=== PATIENT | male | born 1945 | race African-American/Black ===

== ENCOUNTER 2016-02-28 07:24 | Outpatient (CLI) | payer MEDICARE ==
[2016-02-28 09:35] LABS: ALT (SGPT) 26 U/L (0-55); AST (SGOT) 20 U/L (5-34); Alkaline Phosphatase 79 U/L (40-150); Anion Gap 12 mmol/L (10-20); BUN (Urea Nitrogen) 15 mg/dL (8.4-25.7); Bilirubin, Direct 0.4 mg/dL (0.1-0.3); Bilirubin, Total 0.9 mg/dL (0.2-1.2); Calc. Creatinine Clearance 0 mL/min (70-130); Carbon Dioxide 25 mmol/L (23-31); Chloride 106 mmol/L (98-107); Estimated GFR-MDRD 72; LDL Cholesterol, Calculated 63 mg/dL; Magnesium 1.8 mg/dL (1.6-2.6); Protein, Total 6.7 g/dL (5.8-8.1)
[2016-02-28 09:36] LABS: Hemoglobin A1c 5.7 % (4.0-6.0)
== END 2016-02-28 07:25 | disposition home or self-care (01) ==
LOC: NAV LABSP 07:24
PROVIDERS: ATTEND Family Medicine
DX: I50.42 Chronic combined systolic (congestive) and diastolic (congestive) heart failure (principal); I48.91 Unspecified atrial fibrillation; I25.10 Atherosclerotic heart disease of native coronary artery without angina pectoris; Z79.899 Other long term (current) drug therapy
CPT/HCPCS: 36415; 80048; 80061; 80076; 83036; 83735; 84436; 84443

== ENCOUNTER 2016-03-17 15:30 | Outpatient (CLI) | payer MEDICARE | END 2016-03-17 15:31 | disposition home or self-care (01) | LOC: NAV LABSP 15:30 | PROVIDERS: ATTEND Family Medicine | DX: R50.9 Fever, unspecified (principal); R05 Cough ==

== ENCOUNTER 2016-04-10 15:47 | Emergency (ER) | payer MEDICARE, OTHER ==
--- NOTE | 2016-04-10 16:48 | CT ---
CT HEAD WITHOUT IV CONTRAST 04/10/16 HISTORY: Patient fell at [place], now complains of headache with pain to back of head. COMPARISON: 02/01/16 Again noted are mild chronic small vessel ischemic changes and cerebral volume loss which have not p rogressed from the prior exam. There is no evidence of an acute cortical infarction, hemorrhage, mas s effect or midline shift. Ventricles are normal in size, shape and position for the degree of sulca l atrophy. There is mucosal thickening in each maxillary antrum and ethmoidal air cells as well as the right sp henoid sinus. There is thickening of the sexton of the right maxillary antrum, which may be attributa ble to chronic sinusitis. There is no evidence of a calvarial fracture. IMPRESSION: 1. No acute intracranial abnormality demonstrated. 2. Chronic small vessel ischemic changes and cerebral volume loss which has not progressed from the prior exam. 3. Minimal sinus disease. POS: [facility]
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
[2016-04-10 16:58] LABS: #Basophils 0.1 thou/uL (0.0-0.2); #Eosinphils 0.4 thou/uL (0.0-0.7); #Lymphocytes 1.9 thou/uL (1.20-3.40); #Monocytes 0.6 thou/uL (0.11-0.59); #Neutrophils 2.1 thou/uL (1.40-6.50); %Basophils 1.9 % (0.0-1.0); %Eosinophils 7.4 % (0.0-10.0); %Lymphocytes 37.4 % (21.0-51.0); %Monocytes 11.9 % (0.0-10.0); Mean Platelet Volume 6.2 fL (7.4-10.4); Red Blood Cell (RBC) Count 3.93 mill/uL (4.70-6.10); White Blood Cell (WBC) Count 5.1 thou/uL (4.8-10.8)
[2016-04-10 17:07] LABS: PTT 21.9 SEC (22.9-36.1); Prothrombin Time 13.8 SEC (12.0-14.7)
[2016-04-10 17:10] LABS: Anion Gap 15 mmol/L (10-20); BUN (Urea Nitrogen) 9 mg/dL (8.4-25.7); Calc. Creatinine Clearance 0 mL/min (70-130); Calcium 8.3 mg/dL (7.8-10.44); Carbon Dioxide 21 mmol/L (23-31); Chloride 103 mmol/L (98-107); Estimated GFR-MDRD Greater than 90
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
== END 2016-04-11 00:45 | disposition home or self-care (01) ==
LOC: NAV ERS 15:47
DX: S09.90XA Unspecified injury of head, initial encounter (principal); I71.4 Abdominal aortic aneurysm, without rupture; S20.229A Contusion of unspecified back wall of thorax, initial encounter; M54.2 Cervicalgia; Z79.01 Long term (current) use of anticoagulants; W10.9XXA Fall (on) (from) unspecified stairs and steps, initial encounter
CPT/HCPCS: 70450; 71260; 72125; 74177; 80048; 80307; 85025; 85610; 85730

== ENCOUNTER 2016-07-08 19:08 | Emergency (ER) | payer MEDICARE, MEDICAID ==
[2016-07-08] MEDS ORDERED: Amoxicillin/Potassium Clav 875 MG TAB ONE (19:44)
[2016-07-08] MEDS ORDERED: Rabies Vaccine Human 2.5 UNITS VIAL ONE (19:45)
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
== END 2016-07-08 20:38 | disposition home or self-care (01) ==
LOC: NAV ERS 19:08
DX: S71.152A Open bite, left thigh, initial encounter (principal); S80.811A Abrasion, right lower leg, initial encounter; I25.10 Atherosclerotic heart disease of native coronary artery without angina pectoris; E78.5 Hyperlipidemia, unspecified; I10 Essential (primary) hypertension; F17.220 Nicotine dependence, chewing tobacco, uncomplicated; W54.0XXA Bitten by dog, initial encounter
CPT/HCPCS: 90375; 90471; 90675; 96372

== ENCOUNTER 2016-12-25 19:04 | Emergency (ER) | payer MEDICARE ==
[2016-12-25] MEDS ORDERED: Nitroglycerin 0.4 MG TAB (25 Tab Bottle) ONE (19:21)
--- NOTE | 2016-12-25 19:40 | RAD ---
EXAM: ONE VIEW CHEST 12/25/16 HISTORY: Chest pain. COMPARISON: 07/30/16 FINDINGS: Stable right sided defibrillator. Sternotomy wires are redemonstrated. Normal cardiac silhouette. Th e pulmonary vessels and hilum are normal. Costophrenic angles are clear. No mass. No consolidation. No osseous abnormalities or pneumothorax. IMPRESSION: No acute cardiopulmonary process. No significant change. POS: [facility]
[2016-12-25 19:43] LABS: #Basophils 0.1 thou/uL (0.0-0.2); #Eosinphils 0.2 thou/uL (0.0-0.7); #Lymphocytes 2.2 thou/uL (1.20-3.40); #Monocytes 0.5 thou/uL (0.11-0.59); #Neutrophils 2.8 thou/uL (1.40-6.50); %Basophils 2.1 % (0.0-1.0); %Eosinophils 4.1 % (0.0-10.0); %Lymphocytes 37.9 % (21.0-51.0); %Monocytes 8.8 % (0.0-10.0); %Neutrophils 47.2 % (42.0-75.0); Hemoglobin 15.4 g/dL (14.0-18.0); Mean Corpuscular HGB CONC 31.5 g/dL (32.0-36.0); Mean Corpuscular Hemoglobin 31.2 pg (27.0-31.0); Mean Corpuscular Volume 99.2 fl (80.0-94.0); Mean Platelet Volume 7.6 fL (7.4-10.4); Platelet Count 195 thou/uL (130-400); RBC Distribution Width 13.5 % (11.5-14.5); Red Blood Cell (RBC) Count 4.95 mill/uL (4.70-6.10); White Blood Cell (WBC) Count 5.9 thou/uL (4.8-10.8)
[2016-12-25 19:56] LABS: ALT (SGPT) 20 U/L (8-55); AST (SGOT) 30 U/L (5-34); Albumin 3.7 g/dL (3.4-4.8); Alcohol 179 mg/dL (Less than 10); Alkaline Phosphatase 79 U/L (40-150); Anion Gap 18 mmol/L (10-20); BUN (Urea Nitrogen) 8 mg/dL (8.4-25.7); Bilirubin, Total 0.7 mg/dL (0.2-1.2); CK (CPK) 81 U/L (30-200); Calc. Creatinine Clearance 0 mL/min (70-130); Calcium 8.7 mg/dL (7.8-10.44); Carbon Dioxide 23 mmol/L (23-31); Chloride 101 mmol/L (98-107); Estimated GFR-MDRD Greater than 90; Globulin 3.8 g/dL (2.4-3.5); Glucose 80 mg/dL (80-115); Potassium 3.4 mmol/L (3.5-5.1); Protein, Total 7.5 g/dL (5.8-8.1); Sodium 139 mmol/L (136-145)
[2016-12-25 19:58] LABS: CKMB 1.8 ng/mL (0-6.6); Troponin I 0.031 ng/mL (< 0.028)
[2016-12-25] MEDS ORDERED: Potassium Chloride 20 MEQ TAB ONE (20:15)
== END 2016-12-25 20:28 | disposition short-term general hospital (02) ==
LOC: NAV ERS 19:04
DX: E87.6 Hypokalemia (principal); R07.9 Chest pain, unspecified; F10.129 Alcohol abuse with intoxication, unspecified; E78.5 Hyperlipidemia, unspecified; I25.10 Atherosclerotic heart disease of native coronary artery without angina pectoris; I10 Essential (primary) hypertension; F17.220 Nicotine dependence, chewing tobacco, uncomplicated
CPT/HCPCS: 71010; 80053; 80307; 82553; 83880; 84484; 85025; 93005

== ENCOUNTER 2017-03-10 16:06 | Emergency (ER) | payer MEDICARE ==
[2017-03-10] MEDS ORDERED: Nitroglycerin 0.4 MG TAB (25 Tab Bottle) ONE (16:29)
[2017-03-10 16:59] LABS: ALT (SGPT) 39 U/L (8-55); AST (SGOT) 29 U/L (5-34); Albumin 3.4 g/dL (3.4-4.8); Alcohol 29 mg/dL (Less than 10); Alkaline Phosphatase 99 U/L (40-150); Anion Gap 15 mmol/L (10-20); BUN (Urea Nitrogen) 12 mg/dL (8.4-25.7); Bilirubin, Total 1.7 mg/dL (0.2-1.2); CK (CPK) 102 U/L (30-200); Calc. Creatinine Clearance 0 mL/min (70-130); Carbon Dioxide 23 mmol/L (23-31); Chloride 104 mmol/L (98-107); Estimated GFR-MDRD Greater than 90; Globulin 3.2 g/dL (2.4-3.5); Glucose 84 mg/dL (80-115); Potassium 4.2 mmol/L (3.5-5.1); Protein, Total 6.6 g/dL (5.8-8.1); Sodium 138 mmol/L (136-145)
[2017-03-10 17:01] LABS: CKMB 2.5 ng/mL (0-6.6); Troponin I 0.159 ng/mL (< 0.028)
[2017-03-10 17:05] LABS: Bilirubin Small (Negative); Blood, Urine Negative (Negative); Clarity Clear (Clear); Glucose, Urine (Dipstick) Negative (Negative); Leukocyte Negative (Negative); Nitrite Negative (Negative); Protein, Urine (Dipstick) 100 mg/dL (Neg-Trace)
[2017-03-10 17:06] LABS: #Basophils 0.2 thou/uL (0.0-0.2); #Eosinphils 0.2 thou/uL (0.0-0.7); #Lymphocytes 1.7 thou/uL (1.20-3.40); #Monocytes 0.8 thou/uL (0.11-0.59); #Neutrophils 3.5 thou/uL (1.40-6.50); %Basophils 2.9 % (0.0-1.0); %Lymphocytes 26.8 % (21.0-51.0); %Monocytes 12.7 % (0.0-10.0); %Neutrophils 54.6 % (42.0-75.0); Hemoglobin 13.6 g/dL (14.0-18.0); Mean Corpuscular HGB CONC 31.9 g/dL (32.0-36.0); Mean Corpuscular Volume 93.8 fl (80.0-94.0); Mean Platelet Volume 8.2 fL (7.4-10.4); Platelet Count 203 thou/uL (130-400); RBC Distribution Width 13.3 % (11.5-14.5); Red Blood Cell (RBC) Count 4.55 mill/uL (4.70-6.10); White Blood Cell (WBC) Count 6.4 thou/uL (4.8-10.8)
[2017-03-10 17:21] LABS: Amphetamine Not Detected (NotDetected); Barbiturates Screen Not Detected (NotDetected); Benzodiazepine Screen Not Detected (NotDetected); Cocaine Metabolite Screen Not Detected (NotDetected); Medtox Control Line Valid? VALID (VALID); Methadone Not Detected (NotDetected); Methamphetamine Not Detected (NotDetected); Opiate Screen Not Detected (NotDetected); Oxycodone Screen Not Detected (NotDetected); Phencyclidine (PCP) Not Detected (NotDetected); THC/Cannabinoid Screen Not Detected (NotDetected); Tricyclic Screen Not Detected (NotDetected)
[2017-03-10] MEDS ORDERED: Furosemide 40 MG/4 ML VIAL ONE (17:28)
[2017-03-10 17:32] LABS: Bacteria/HPF None Seen HPF (None Seen); RBC/HPF 0-3 HPF (0-3); Squamous Epithelial 0-3 HPF (0-3); WBC/HPF None Seen HPF (0-3)
--- NOTE | 2017-03-10 17:33 | RAD ---
PORTABLE CHEST 03/10/17 PROVIDED CLINICAL HISTORY: Chest pain. FINDINGS: Comparison 12/25/16. The cardiac silhouette appears enlarged. Median sternotomy changes and right subclavian cardiac pacin g device are redemonstrated. There is prominence of the pulmonary vasculature and pulmonary interstit ium. No definite focal consolidation, pleural fluid, or pneumothorax apparent. IMPRESSION: Cardiomegaly and findings suggesting congestive failure. Followup is recommended. POS: [facility]
== END 2017-03-10 19:21 | disposition short-term general hospital (02) ==
LOC: NAV ERS 16:06
DX: I11.0 Hypertensive heart disease with heart failure (principal); I50.9 Heart failure, unspecified; I25.10 Atherosclerotic heart disease of native coronary artery without angina pectoris; E78.5 Hyperlipidemia, unspecified; F17.220 Nicotine dependence, chewing tobacco, uncomplicated
CPT/HCPCS: 71045; 80053; 80306; 80307; 81003; 81015; 82550; 82553; 83880; 84484; 85025; 93005; 96374; J1940

== ENCOUNTER 2017-03-16 17:48 | Emergency (ER) | payer MEDICARE ==
[2017-03-16] MEDS ORDERED: Nitroglycerin 0.4 MG TAB (25 Tab Bottle) ONE (18:12)
[2017-03-16 18:31] LABS: INR-International Normal Ratio 1.1; PTT 29.1 SEC (22.9-36.1); Prothrombin Time 14.5 SEC (12.0-14.7)
[2017-03-16 18:35] LABS: Mean Corpuscular HGB CONC 32.1 g/dL (32.0-36.0); Mean Corpuscular Volume 93.3 fl (80.0-94.0); Mean Platelet Volume 10.8 fL (7.4-10.4); Platelet Count 252 thou/uL (130-400); RBC Distribution Width 12.8 % (11.5-14.5); Red Blood Cell (RBC) Count 4.66 mill/uL (4.70-6.10)
[2017-03-16 18:36] LABS: Digoxin 0.16 ng/mL (0.8-2.0)
[2017-03-16 18:38] LABS: ALT (SGPT) 31 U/L (8-55); AST (SGOT) 30 U/L (5-34); Albumin 3.6 g/dL (3.4-4.8); Alcohol 34 mg/dL (Less than 10); Alkaline Phosphatase 89 U/L (40-150); Anion Gap 16 mmol/L (10-20); BUN (Urea Nitrogen) 12 mg/dL (8.4-25.7); Bilirubin, Total 1.1 mg/dL (0.2-1.2); Calc. Creatinine Clearance 0 mL/min (70-130); Calcium 9.1 mg/dL (7.8-10.44); Carbon Dioxide 22 mmol/L (23-31); Chloride 104 mmol/L (98-107); Estimated GFR-MDRD Greater than 90; Globulin 3.7 g/dL (2.4-3.5); Glucose 102 mg/dL (80-115); Protein, Total 7.3 g/dL (5.8-8.1); Sodium 138 mmol/L (136-145)
[2017-03-16 18:46] LABS: CKMB 3.4 ng/mL (0-6.6); Troponin I 0.073 ng/mL (< 0.028)
[2017-03-16 19:00] LABS: Eosinophils 4 % (0-10); Lymphocytes 39 % (21-51); MDiff Complete? YES; Monocytes 10 % (0-10); Neutrophil 47 % (42-75); PLT Morphology Comment Appears Adequate; RBC Morphology Normal
[2017-03-16] MEDS ORDERED: Ketorolac Tromethamine 30 MG/ML VIAL ONE (19:05)
[2017-03-16] MEDS ORDERED: Furosemide 40 MG/4 ML VIAL ONE (19:05)
--- NOTE | 2017-03-16 20:15 | RAD ---
CHEST TWO VIEWS: 03/16/17 HISTORY: Shortness of breath and chest pain. Heart size is slightly enlarged. Pulmonary vessels are mildly engorged without focal infiltrative pro cess. An internal defibrillator device is present. IMPRESSION: Cardiomegaly with mild vascular engorgement. No overt edema. POS: [facility]
== END 2017-03-16 19:25 | disposition home or self-care (01) ==
LOC: NAV ERS 17:48
DX: I11.0 Hypertensive heart disease with heart failure (principal); I50.9 Heart failure, unspecified; E78.5 Hyperlipidemia, unspecified; Z79.899 Other long term (current) drug therapy; Z79.82 Long term (current) use of aspirin
CPT/HCPCS: 71046; 80053; 80162; 80307; 82553; 83880; 84484; 85025; 85610; 85730; 93005; 96374; 96375; J1885; J1940

== ENCOUNTER 2017-03-20 15:40 | Emergency (ER) | payer MEDICARE ==
[2017-03-20] MEDS ORDERED: Ketorolac Tromethamine 30 MG/ML VIAL ONE (16:04)
[2017-03-20] MEDS ORDERED: Ibuprofen 200 MG TAB ONE (16:08)
== END 2017-03-20 16:43 | disposition home or self-care (01) ==
LOC: NAV ERS 15:40
DX: R07.9 Chest pain, unspecified (principal); I25.10 Atherosclerotic heart disease of native coronary artery without angina pectoris; E78.5 Hyperlipidemia, unspecified; I11.0 Hypertensive heart disease with heart failure; I50.9 Heart failure, unspecified
CPT/HCPCS: 93005; J1885

== ENCOUNTER 2017-04-19 18:03 | Emergency (ER) | payer MEDICARE ==
[2017-04-19] MEDS ORDERED: Ibuprofen 800 MG TAB ONE (18:35)
== END 2017-04-19 18:46 | disposition home or self-care (01) ==
LOC: NAV ERS 18:03
DX: R07.89 Other chest pain (principal); F10.129 Alcohol abuse with intoxication, unspecified; I25.10 Atherosclerotic heart disease of native coronary artery without angina pectoris; I11.0 Hypertensive heart disease with heart failure; I50.9 Heart failure, unspecified; E78.5 Hyperlipidemia, unspecified
CPT/HCPCS: 93005

== ENCOUNTER 2017-06-03 20:55 | Emergency (ER) | payer MEDICARE ==
--- NOTE | 2017-06-03 21:34 | RAD ---
AP VIEW OF THE CHEST: 06/03/17 INDICATION: Difficulty breathing. COMPARISON: Prior exam dated 04/27/17. FINDINGS: There is persistent cardiomegaly but worsening pulmonary vascular congestion. Tiny bilateral pleural effusion. AICD is unchanged. IMPRESSION: Findings consistent with decompensated CHF. POS: [facility]
[2017-06-03 21:35] LABS: Hemoglobin 14.4 g/dL (14.0-18.0); Mean Corpuscular HGB CONC 31.3 g/dL (32.0-36.0); Mean Corpuscular Hemoglobin 29.5 pg (27.0-31.0); Mean Corpuscular Volume 94.2 fl (80.0-94.0); Mean Platelet Volume 8.3 fL (7.4-10.4); Platelet Count 167 thou/uL (130-400); RBC Distribution Width 15.5 % (11.5-14.5); Red Blood Cell (RBC) Count 4.89 mill/uL (4.70-6.10); White Blood Cell (WBC) Count 5.2 thou/uL (4.8-10.8)
[2017-06-03 21:45] LABS: CKMB 4.3 ng/mL (0-6.6)
[2017-06-03] MEDS ORDERED: Nitroglycerin 2% Ointment 1 INCH/1 GM Packet ONE (21:58)
[2017-06-03] MEDS ORDERED: Furosemide 40 MG/4 ML VIAL ONE (22:00)
[2017-06-03 22:02] LABS: ALT (SGPT) 28 U/L (8-55); AST (SGOT) 25 U/L (5-34); Albumin 3.8 g/dL (3.4-4.8); Alcohol Less than 10 mg/dL (Less than 10); Alkaline Phosphatase 109 U/L (40-150); Anion Gap 19 mmol/L (10-20); BUN (Urea Nitrogen) 20 mg/dL (8.4-25.7); Bilirubin, Total 1.9 mg/dL (0.2-1.2); CK (CPK) 100 U/L (30-200); Calc. Creatinine Clearance 0 mL/min (70-130); Calcium 9.4 mg/dL (7.8-10.44); Carbon Dioxide 19 mmol/L (23-31); Chloride 107 mmol/L (98-107); Estimated GFR-MDRD 88; Globulin 3.7 g/dL (2.4-3.5); Glucose 83 mg/dL (83-110); Lipase 21 U/L (8-78); Potassium 4.5 mmol/L (3.5-5.1); Protein, Total 7.5 g/dL (5.8-8.1); Sodium 140 mmol/L (136-145)
[2017-06-03 22:17] LABS: Eosinophils 4 % (0-10); Lymphocytes 43 % (21-51); MDiff Complete? YES; Monocytes 6 % (0-10); Neutrophil 47 % (42-75); PLT Morphology Comment Appears Adequate; RBC Morphology Normal
== END 2017-06-03 22:53 | disposition short-term general hospital (02) ==
LOC: NAV ERS 20:55
DX: I21.4 Non-ST elevation (NSTEMI) myocardial infarction (principal); I11.0 Hypertensive heart disease with heart failure; I50.9 Heart failure, unspecified; I25.10 Atherosclerotic heart disease of native coronary artery without angina pectoris; E78.5 Hyperlipidemia, unspecified; F17.210 Nicotine dependence, cigarettes, uncomplicated; Z79.899 Other long term (current) drug therapy
CPT/HCPCS: 71045; 80053; 80307; 82550; 82553; 83690; 83880; 84484; 85025; 93005; 96374; J1940

== ENCOUNTER 2017-08-04 14:19 | Emergency (ER) | payer MEDICARE ==
[2017-08-04 14:56] LABS: #Basophils 0.1 thou/uL (0.0-0.2); #Eosinphils 0.1 thou/uL (0.0-0.7); #Lymphocytes 1.5 thou/uL (1.20-3.40); #Monocytes 0.6 thou/uL (0.11-0.59); #Neutrophils 2.7 thou/uL (1.40-6.50); %Basophils 2.2 % (0.0-1.0); %Eosinophils 1.4 % (0.0-10.0); %Lymphocytes 29.9 % (21.0-51.0); %Monocytes 11.9 % (0.0-10.0); %Neutrophils 54.6 % (42.0-75.0); Hemoglobin 14.6 g/dL (14.0-18.0); Mean Corpuscular HGB CONC 30.8 g/dL (32.0-36.0); Mean Corpuscular Hemoglobin 29.1 pg (27.0-31.0); Mean Corpuscular Volume 94.5 fL (78.0-98.0); Mean Platelet Volume 8.4 fL (7.4-10.4); Platelet Count 175 thou/uL (130-400); RBC Distribution Width 15.8 % (11.5-14.5); White Blood Cell (WBC) Count 4.9 thou/uL (4.8-10.8)
[2017-08-04 15:15] LABS: ALT (SGPT) 23 U/L (8-55); AST (SGOT) 25 U/L (5-34); Albumin 3.6 g/dL (3.4-4.8); Alkaline Phosphatase 114 U/L (40-150); Anion Gap 16 mmol/L (10-20); BUN (Urea Nitrogen) 19 mg/dL (8.4-25.7); Bilirubin, Total 3.4 mg/dL (0.2-1.2); Calc. Creatinine Clearance 0 mL/min (70-130); Carbon Dioxide 17 mmol/L (23-31); Chloride 106 mmol/L (98-107); Estimated GFR-MDRD Greater than 90; Globulin 3.3 g/dL (2.4-3.5); Glucose 108 mg/dL (83-110); Potassium 4.3 mmol/L (3.5-5.1); Protein, Total 6.9 g/dL (5.8-8.1); Sodium 135 mmol/L (136-145)
[2017-08-04 15:18] LABS: Troponin I 0.32 ng/mL (< 0.028)
[2017-08-04] MEDS ORDERED: Nitroglycerin 2% Ointment 1 INCH/1 GM Packet ONE (15:32)
[2017-08-04] MEDS ORDERED: Nitroglycerin 0.4 MG TAB (25 Tab Bottle) ONE (15:32)
[2017-08-04] MEDS ORDERED: Furosemide 40 MG/4 ML VIAL ONE (15:32)
--- NOTE | 2017-08-04 15:33 | RAD ---
PORTABLE CHEST ONE VIEW: 08/04/17 at 3:18 p.m. HISTORY: Chest pain. FINDINGS/IMPRESSION: Comparison made to exam of 06/03/17. The heart is enlarged. Changes of median sternotomy again seen. Right sided AICD remains in place. No lobar consolidation, pneumothoraces, yumiko pulmonary edema or large effusions are identified. POS: [facility]
== END 2017-08-04 16:11 | disposition short-term general hospital (02) ==
LOC: NAV ERS 14:19
DX: I11.0 Hypertensive heart disease with heart failure (principal); I50.9 Heart failure, unspecified; I25.10 Atherosclerotic heart disease of native coronary artery without angina pectoris; E78.5 Hyperlipidemia, unspecified; F17.200 Nicotine dependence, unspecified, uncomplicated
CPT/HCPCS: 71045; 80053; 83880; 84484; 85025; 93005; 96374; J1940

== ENCOUNTER 2017-08-25 12:13 | Emergency (ER) | payer MEDICARE ==
[~2017-08-25 12:13] MED LIST: Iopamidol 370 76% 100 ML VIAL ONE
[2017-08-25 12:47] LABS: #Basophils 0.1 thou/uL (0.0-0.2); #Eosinphils 0.1 thou/uL (0.0-0.7); #Monocytes 0.6 thou/uL (0.11-0.59); %Eosinophils 2.2 % (0.0-10.0); %Lymphocytes 19.7 % (21.0-51.0); %Monocytes 12.8 % (0.0-10.0); %Neutrophils 62.4 % (42.0-75.0); Hemoglobin 13.7 g/dL (14.0-18.0); Mean Corpuscular HGB CONC 31.9 g/dL (32.0-36.0); Mean Corpuscular Hemoglobin 29.9 pg (27.0-31.0); Mean Platelet Volume 8.6 fL (7.4-10.4); Platelet Count 171 thou/uL (130-400); Red Blood Cell (RBC) Count 4.59 mill/uL (4.70-6.10); White Blood Cell (WBC) Count 4.9 thou/uL (4.8-10.8)
[2017-08-25 13:00] LABS: CKMB 1.9 ng/mL (0-6.6); Troponin I 0.053 ng/mL (< 0.028)
[2017-08-25 13:14] LABS: ALT (SGPT) 21 U/L (8-55); AST (SGOT) 23 U/L (5-34); Albumin 3.4 g/dL (3.4-4.8); Alkaline Phosphatase 106 U/L (40-150); Anion Gap 14 mmol/L (10-20); BUN (Urea Nitrogen) 25 mg/dL (8.4-25.7); Bilirubin, Total 3.2 mg/dL (0.2-1.2); CK (CPK) 61 U/L (30-200); Calc. Creatinine Clearance 0 mL/min (70-130); Carbon Dioxide 19 mmol/L (23-31); Chloride 105 mmol/L (98-107); Estimated GFR-MDRD 87; Globulin 3.2 g/dL (2.4-3.5); Glucose 124 mg/dL (83-110); Potassium 4.4 mmol/L (3.5-5.1); Protein, Total 6.6 g/dL (5.8-8.1); Sodium 134 mmol/L (136-145)
[2017-08-25 14:19] LABS: Bilirubin Small (Negative); Blood, Urine Negative (Negative); Clarity Clear (Clear); Glucose, Urine (Dipstick) Negative (Negative); Leukocyte Negative (Negative); Nitrite Negative (Negative); Protein, Urine (Dipstick) 100 mg/dL (Neg-Trace)
[2017-08-25 14:21] LABS: Specific Gravity, Urine 1.027 (1.002-1.036)
[2017-08-25 14:26] LABS: RBC/HPF None Seen HPF (0-3); WBC/HPF None Seen HPF (0-3)
[2017-08-25 14:27] LABS: Bacteria/HPF None Seen HPF (None Seen); Crystals/HPF RARE ACID URATES HPF (Negative); Squamous Epithelial None Seen HPF (0-3)
[2017-08-25] MEDS ORDERED: Enoxaparin Sodium 80 MG/0.8 ML SYRINGE ONE (14:28)
[2017-08-25] MEDS ORDERED: Furosemide 20 MG/2 ML VIAL ONE (14:28)
--- NOTE | 2017-08-25 14:32 | ULT ---
BILATERAL LOWER EXTREMITY VENOUS DUPLEX ULTRASOUND INCLUDING COLOR AND SPECTRAL DOPPLER IMAGING: Date: 08/25/17 HISTORY: 72-year-old male with history of bilateral lower extremity edema and swelling, and shortness of breat h. TECHNIQUE: Exam performed from groin to ankle including visualized greater saphenous, common femoral, superficia l femoral, profunda femoral, popliteal, trifurcation, and posterior tibial vein regions. FINDINGS: The right lower extremity demonstrated phasic flow at all levels with normal compressibility and norm al augmentation. The left leg demonstrated intraluminal thrombus involving the common femoral vein, and proximal mid a nd distal superficial vein, and popliteal vein, with some flow noted within the trifurcation and post erior tibial vein and profunda vein on the left side. Extensive lower leg subcutaneous edema. IMPRESSION: Evidence for obstructing deep venous thrombosis involving the common femoral and proximal mid and dis too superficial femoral, and popliteal vein on the left side, which is new and/or considerably worse than on the prior study of 06/04/17. Findings for deep venous thrombosis were discussed with the ER physician, Dr. Anguiano, by the ultraso und technologist, Apolonia Pantoja, at the time of the study. CODE CR. POS: [facility]
--- NOTE | 2017-08-25 15:11 | CT ---
CT ANGIO CHEST PERFORMED WITH IV CONTRAST ENHANCEMENT WITH 3D RECONSTRUCTIONS: Date: 08/25/17 HISTORY: Shortness of breath, elevated D-Dimer. FINDINGS: A small left pleural effusion is identified and a very minimal right-sided effusion is present. No si gns of interstitial edema. No infiltrative process. There are fairly extensive coronary artery calcifications seen. The thoracic aorta is normal in calib er. There is fairly good pulmonary artery opacification. Small peripheral emboli cannot be excluded. No d efinitive evidence for pulmonary embolus. Visualized liver parenchyma shows no focal findings. IMPRESSION: 1. No CT evidence for pulmonary embolus. 2. Extensive coronary artery calcifications. 3. Small left pleural effusion. POS: [facility]
== END 2017-08-25 16:38 | disposition short-term general hospital (02) ==
LOC: NAV ERS 12:13
DX: I82.412 Acute embolism and thrombosis of left femoral vein (principal); I82.432 Acute embolism and thrombosis of left popliteal vein; I25.10 Atherosclerotic heart disease of native coronary artery without angina pectoris; E78.5 Hyperlipidemia, unspecified; I11.0 Hypertensive heart disease with heart failure; I50.9 Heart failure, unspecified; Z87.891 Personal history of nicotine dependence; Z79.899 Other long term (current) drug therapy
CPT/HCPCS: 51702; 71275; 80053; 81003; 81015; 82550; 82553; 83880; 84484; 85025; 85379; 93005; 93970; 96372; 96374; J1650; J1940

== ENCOUNTER 2017-11-08 17:39 | Emergency (ER) | payer MEDICARE ==
[2017-11-08 19:01] LABS: #Basophils 0.1 thou/uL (0.0-0.2); #Eosinphils 0.2 thou/uL (0.0-0.7); #Lymphocytes 1.6 thou/uL (1.20-3.40); #Monocytes 0.5 thou/uL (0.11-0.59); %Basophils 2.6 % (0.0-1.0); %Eosinophils 4.5 % (0.0-10.0); %Lymphocytes 36.9 % (21.0-51.0); %Monocytes 10.9 % (0.0-10.0); Hemoglobin 12.7 g/dL (14.0-18.0); Mean Corpuscular HGB CONC 31.1 g/dL (32.0-36.0); Mean Corpuscular Hemoglobin 30.1 pg (27.0-31.0); Mean Corpuscular Volume 96.8 fL (78.0-98.0); Mean Platelet Volume 7.6 fL (7.4-10.4); Platelet Count 235 thou/uL (130-400); RBC Distribution Width 16.1 % (11.5-14.5); Red Blood Cell (RBC) Count 4.22 mill/uL (4.70-6.10); White Blood Cell (WBC) Count 4.4 thou/uL (4.8-10.8)
[2017-11-08 19:17] LABS: CKMB 2.5 ng/mL (0-6.6)
[2017-11-08 19:27] LABS: ALT (SGPT) 14 U/L (8-55); AST (SGOT) 17 U/L (5-34); Albumin 3.6 g/dL (3.4-4.8); Alkaline Phosphatase 82 U/L (40-150); Anion Gap 15 mmol/L (10-20); BUN (Urea Nitrogen) 15 mg/dL (8.4-25.7); Bilirubin, Total 3.4 mg/dL (0.2-1.2); Calc. Creatinine Clearance 0 mL/min (70-130); Calcium 9.3 mg/dL (7.8-10.44); Carbon Dioxide 20 mmol/L (23-31); Chloride 109 mmol/L (98-107); Estimated GFR-MDRD 77; Globulin 3.5 g/dL (2.4-3.5); Glucose 140 mg/dL (83-110); Lipase 19 U/L (8-78); Potassium 3.7 mmol/L (3.5-5.1); Protein, Total 7.1 g/dL (5.8-8.1); Sodium 140 mmol/L (136-145)
--- NOTE | 2017-11-08 20:36 | RAD ---
RADIOGRAPH CHEST 2 VIEWS: Date: 11/08/2017 Time: 7:18 p.m. HISTORY: A 72-year-old male with chest pain. COMPARISON: One view study from 11/02/2017. FINDINGS: Again noted are the enlargement of the cardiac shadow, sternotomy wires, surgical clips along the santosh face of the heart, and right subclavian dual-lead AICD. There is pulmonary venous engorgement. No p ulmonary edema, consolidation, pleural effusion, or pneumothorax. The pulmonary venous engorgement i s questionably slightly worse now than before. No other interval change detected on the frontal view . IMPRESSION: 1. Cardiomegaly and mild pulmonary venous congestion. 2. Status post coronary artery bypass graft surgery is evidence for coronary atherosclerotic disease . 3. Automatic implantable cardioverter/defibrillator. KINGA [] POS: [facility]
== END 2017-11-08 20:48 | disposition short-term general hospital (02) ==
LOC: NAV ERS 17:39
DX: I13.2 Hypertensive heart and chronic kidney disease with heart failure and with stage 5 chronic kidney disease, or end stage renal disease (principal); I50.9 Heart failure, unspecified; N18.6 End stage renal disease; R79.89 Other specified abnormal findings of blood chemistry; Z86.711 Personal history of pulmonary embolism; I25.10 Atherosclerotic heart disease of native coronary artery without angina pectoris; E78.5 Hyperlipidemia, unspecified; Z87.891 Personal history of nicotine dependence
CPT/HCPCS: 71046; 80053; 82553; 83690; 83880; 84484; 85025; 93005; 94760

== ENCOUNTER 2017-11-19 14:50 | Emergency (ER) | payer MEDICARE ==
[2017-11-19 15:45] LABS: #Basophils 0.1 thou/uL (0.0-0.2); #Eosinphils 0.2 thou/uL (0.0-0.7); #Lymphocytes 1.5 thou/uL (1.20-3.40); #Monocytes 0.6 thou/uL (0.11-0.59); #Neutrophils 2.3 thou/uL (1.40-6.50); %Basophils 2.4 % (0.0-1.0); %Eosinophils 4.5 % (0.0-10.0); %Monocytes 11.7 % (0.0-10.0); %Neutrophils 49.3 % (42.0-75.0); Hemoglobin 13.2 g/dL (14.0-18.0); Mean Corpuscular HGB CONC 31.4 g/dL (32.0-36.0); Mean Corpuscular Hemoglobin 30.1 pg (27.0-31.0); Mean Platelet Volume 8.2 fL (7.4-10.4); Platelet Count 208 thou/uL (130-400); RBC Distribution Width 15.7 % (11.5-14.5); Red Blood Cell (RBC) Count 4.37 mill/uL (4.70-6.10); White Blood Cell (WBC) Count 4.7 thou/uL (4.8-10.8)
[2017-11-19 16:04] LABS: ALT (SGPT) 16 U/L (8-55); AST (SGOT) 20 U/L (5-34); Albumin 3.8 g/dL (3.4-4.8); Alkaline Phosphatase 93 U/L (40-150); Anion Gap 16 mmol/L (10-20); BUN (Urea Nitrogen) 15 mg/dL (8.4-25.7); Bilirubin, Total 2.7 mg/dL (0.2-1.2); CK (CPK) 89 U/L (30-200); CKMB 1.5 ng/mL (0-6.6); Calc. Creatinine Clearance 0 mL/min (70-130); Calcium 9.3 mg/dL (7.8-10.44); Carbon Dioxide 21 mmol/L (23-31); Chloride 108 mmol/L (98-107); Estimated GFR-MDRD 87; Globulin 3.2 g/dL (2.4-3.5); Glucose 94 mg/dL (83-110); Lipase 22 U/L (8-78); Potassium 4.6 mmol/L (3.5-5.1); Sodium 140 mmol/L (136-145); Troponin I 0.051 ng/mL (< 0.028)
--- NOTE | 2017-11-19 16:32 | RAD ---
PORTABLE AP CHEST: Date: 11/19/17 HISTORY: Chest pain since this morning. COMPARISON: 11/02/17. 11/08/17. FINDINGS: A dual lead right subclavian AICD device remains in place. Postsurgical changes related to CABG are a gain noted. The cardiac silhouette is enlarged. There are fractures involving the right posterior fif th and sixth ribs, which were not seen on prior study. There is mild pulmonary vascular congestion. N o pneumothorax or right pleural effusion is seen. There is question of minimal blunting of the left l ateral costophrenic angle, but this is probably related to overlying soft tissue density. No other in terval change. IMPRESSION: 1. Cardiomegaly with mild pulmonary vascular congestion. 2. Nondisplaced fractures involving the right posterior fifth and sixth ribs, which were not seen on the prior exam. POS: [facility]
== END 2017-11-19 16:58 | disposition home or self-care (01) ==
LOC: NAV ERS 14:50
DX: R07.2 Precordial pain (principal); Z86.718 Personal history of other venous thrombosis and embolism; I25.10 Atherosclerotic heart disease of native coronary artery without angina pectoris; I11.0 Hypertensive heart disease with heart failure; I50.9 Heart failure, unspecified; E78.5 Hyperlipidemia, unspecified; Z87.891 Personal history of nicotine dependence; Z79.899 Other long term (current) drug therapy; Z79.82 Long term (current) use of aspirin
CPT/HCPCS: 71045; 80053; 82553; 83690; 83880; 84484; 85025; 93005

== ENCOUNTER 2018-01-10 10:53 | Emergency (ER) | payer MEDICARE ==
[2018-01-10 12:03] LABS: #Basophils 0.1 thou/uL (0.0-0.2); #Eosinphils 0.1 thou/uL (0.0-0.7); #Lymphocytes 1.4 thou/uL (1.20-3.40); #Monocytes 0.5 thou/uL (0.11-0.59); #Neutrophils 2.3 thou/uL (1.40-6.50); %Basophils 1.8 % (0.0-1.0); %Eosinophils 2.9 % (0.0-10.0); %Lymphocytes 31.8 % (21.0-51.0); %Monocytes 11.4 % (0.0-10.0); %Neutrophils 52.1 % (42.0-75.0); Hemoglobin 13.9 g/dL (14.0-18.0); Mean Corpuscular HGB CONC 30.4 g/dL (32.0-36.0); Mean Corpuscular Hemoglobin 29.3 pg (27.0-31.0); Mean Corpuscular Volume 96.5 fL (78.0-98.0); Mean Platelet Volume 7.2 fL (7.4-10.4); Platelet Count 252 thou/uL (130-400); RBC Distribution Width 14.4 % (11.5-14.5); Red Blood Cell (RBC) Count 4.74 mill/uL (4.70-6.10); White Blood Cell (WBC) Count 4.5 thou/uL (4.8-10.8)
[2018-01-10 12:08] LABS: ALT (SGPT) 34 U/L (8-55); AST (SGOT) 24 U/L (5-34); Albumin 3.9 g/dL (3.4-4.8); Alkaline Phosphatase 134 U/L (40-150); Anion Gap 16 mmol/L (10-20); BUN (Urea Nitrogen) 20 mg/dL (8.4-25.7); Bilirubin, Total 2.2 mg/dL (0.2-1.2); CK (CPK) 125 U/L (30-200); Calc. Creatinine Clearance 0 mL/min (70-130); Calcium 9.6 mg/dL (7.8-10.44); Carbon Dioxide 24 mmol/L (23-31); Chloride 102 mmol/L (98-107); Estimated GFR-MDRD 85; Globulin 3.9 g/dL (2.4-3.5); Glucose 108 mg/dL (83-110); Protein, Total 7.8 g/dL (5.8-8.1); Sodium 138 mmol/L (136-145)
[2018-01-10 12:09] LABS: CKMB 2.6 ng/mL (0-6.6)
== END 2018-01-10 13:40 | disposition home or self-care (01) ==
LOC: NAV ERS 10:53
DX: I11.0 Hypertensive heart disease with heart failure (principal); I50.9 Heart failure, unspecified; I25.10 Atherosclerotic heart disease of native coronary artery without angina pectoris; R42 Dizziness and giddiness; E78.5 Hyperlipidemia, unspecified; Z86.718 Personal history of other venous thrombosis and embolism; Z87.891 Personal history of nicotine dependence; Z79.899 Other long term (current) drug therapy
CPT/HCPCS: 36415; 80053; 82550; 82553; 84484; 85025; 93005

== ENCOUNTER 2018-01-27 16:06 | Emergency (ER) | payer MEDICARE ==
[2018-01-27] MEDS ORDERED: Aspirin 325 MG TAB ONE (16:33)
[2018-01-27] MEDS ORDERED: Furosemide 40 MG/4 ML VIAL ONE (16:33)
[2018-01-27 16:45] LABS: #Basophils 0.1 thou/uL (0.0-0.2); #Eosinphils 0.2 thou/uL (0.0-0.7); #Lymphocytes 1.8 thou/uL (1.20-3.40); #Monocytes 0.6 thou/uL (0.11-0.59); #Neutrophils 2.3 thou/uL (1.40-6.50); %Basophils 1.9 % (0.0-1.0); %Eosinophils 3.2 % (0.0-10.0); %Lymphocytes 37.2 % (21.0-51.0); %Monocytes 11.5 % (0.0-10.0); %Neutrophils 46.3 % (42.0-75.0); Hemoglobin 13.2 g/dL (14.0-18.0); Mean Corpuscular HGB CONC 31.2 g/dL (32.0-36.0); Mean Corpuscular Hemoglobin 29.4 pg (27.0-31.0); Mean Corpuscular Volume 94.3 fL (78.0-98.0); Mean Platelet Volume 7.2 fL (7.4-10.4); Platelet Count 233 thou/uL (130-400); RBC Distribution Width 14.6 % (11.5-14.5); Red Blood Cell (RBC) Count 4.48 mill/uL (4.70-6.10); White Blood Cell (WBC) Count 4.9 thou/uL (4.8-10.8)
[2018-01-27 17:06] LABS: ALT (SGPT) 18 U/L (8-55); AST (SGOT) 23 U/L (5-34); Albumin 3.8 g/dL (3.4-4.8); Alkaline Phosphatase 129 U/L (40-150); Anion Gap 17 mmol/L (10-20); BUN (Urea Nitrogen) 18 mg/dL (8.4-25.7); Bilirubin, Total 2.6 mg/dL (0.2-1.2); CK (CPK) 155 U/L (30-200); Calc. Creatinine Clearance 0 mL/min (70-130); Calcium 9.5 mg/dL (7.8-10.44); Carbon Dioxide 18 mmol/L (23-31); Chloride 104 mmol/L (98-107); Estimated GFR-MDRD Greater than 90; Globulin 3.5 g/dL (2.4-3.5); Glucose 102 mg/dL (83-110); Potassium 4.1 mmol/L (3.5-5.1); Protein, Total 7.3 g/dL (5.8-8.1); Sodium 135 mmol/L (136-145)
--- NOTE | 2018-01-27 17:19 | RAD ---
AP PORTABLE SITTING CHEST 1 VIEW: Date: 01/27/18 HISTORY: [id number] male with history of difficulty breathing. COMPARISON: 01/04/18. FINDINGS: Right ICD. Postop midline sternotomy. Prominent cardiomegaly with bilateral vascular congestion, whic h may be slightly worse than on the prior study. No confluent pneumonia or overt edema. IMPRESSION: Prominent cardiomegaly with bilateral vascular congestion without overt confluent pneumonia or acute edema. POS: [facility]
[2018-01-27 17:24] LABS: CKMB 3.1 ng/mL (0-6.6)
== END 2018-01-27 18:06 | disposition short-term general hospital (02) ==
LOC: NAV ERS 16:06
DX: I11.0 Hypertensive heart disease with heart failure (principal); I50.9 Heart failure, unspecified; E78.5 Hyperlipidemia, unspecified; I25.10 Atherosclerotic heart disease of native coronary artery without angina pectoris; Z87.891 Personal history of nicotine dependence; Z86.718 Personal history of other venous thrombosis and embolism; Z79.899 Other long term (current) drug therapy
CPT/HCPCS: 36415; 71045; 80053; 82550; 82553; 83880; 84484; 85025; 93005; 96374; J1940

== ENCOUNTER 2018-02-26 16:20 | Emergency (ER) | payer MEDICARE ==
[2018-02-26 17:39] LABS: #Basophils 0.1 thou/uL (0.0-0.2); #Eosinphils 0.2 thou/uL (0.0-0.7); #Lymphocytes 1.2 thou/uL (1.20-3.40); #Monocytes 0.5 thou/uL (0.11-0.59); #Neutrophils 2.2 thou/uL (1.40-6.50); %Eosinophils 3.7 % (0.0-10.0); %Lymphocytes 29.8 % (21.0-51.0); %Monocytes 11.7 % (0.0-10.0); %Neutrophils 52.9 % (42.0-75.0); Hemoglobin 12.9 g/dL (14.0-18.0); Mean Corpuscular HGB CONC 30.3 g/dL (32.0-36.0); Mean Corpuscular Hemoglobin 28.3 pg (27.0-31.0); Mean Corpuscular Volume 93.4 fL (78.0-98.0); Platelet Count 155 thou/uL (130-400); Red Blood Cell (RBC) Count 4.56 mill/uL (4.70-6.10); White Blood Cell (WBC) Count 4.2 thou/uL (4.8-10.8)
[2018-02-26] MEDS ORDERED: Furosemide 40 MG/4 ML VIAL ONE (17:39)
[2018-02-26 17:54] LABS: ALT (SGPT) 18 U/L (8-55); AST (SGOT) 22 U/L (5-34); Albumin 3.4 g/dL (3.4-4.8); Alkaline Phosphatase 139 U/L (40-150); Anion Gap 18 mmol/L (10-20); BUN (Urea Nitrogen) 25 mg/dL (8.4-25.7); Bilirubin, Total 3.6 mg/dL (0.2-1.2); Calc. Creatinine Clearance 0 mL/min (70-130); Calcium 9.4 mg/dL (7.8-10.44); Carbon Dioxide 16 mmol/L (23-31); Chloride 109 mmol/L (98-107); Estimated GFR-MDRD 75; Globulin 3.7 g/dL (2.4-3.5); Glucose 115 mg/dL (83-110); Potassium 4.8 mmol/L (3.5-5.1); Protein, Total 7.1 g/dL (5.8-8.1); Sodium 138 mmol/L (136-145)
[2018-02-26 17:56] LABS: Hypochromia SLIGHT = 6-15 cells (100X) (0-5/hpf); MDiff Complete? YES; Platelet Morphology Comment Appears Adequate
[2018-02-26 18:10] LABS: CKMB 2.8 ng/mL (0-6.6)
[2018-02-26 18:17] LABS: Bilirubin Negative (Negative); Blood, Urine Negative (Negative); Clarity Clear (Clear); Glucose, Urine (Dipstick) Negative (Negative); Leukocyte Negative (Negative); Nitrite Negative (Negative); Protein, Urine (Dipstick) 100 mg/dL (Neg-Trace)
--- NOTE | 2018-02-26 18:18 | RAD ---
EXAM: CHEST TWO VIEWS: 02/26/18 HISTORY: Dyspnea and shortness of breath. COMPARISON: 11/08/17. Stable marked cardiomegaly with postop midline sternotomy and right ICD. Bilateral vascular congestio n with possible small pleural effusions. No confluent pneumonia. IMPRESSION: Marked cardiomegaly with bilateral vascular congestion and possible small pleural effusions. No signi ficant change from 02/10/18. POS: [facility]
[2018-02-26 18:42] LABS: Bacteria/HPF None Seen HPF (None Seen); RBC/HPF 0-3 HPF (0-3); Squamous Epithelial 0-3 HPF (0-3); WBC/HPF None Seen HPF (0-3)
[2018-02-26 18:43] LABS: Amphetamine Not Detected (NotDetected); Barbiturates Screen Not Detected (NotDetected); Benzodiazepine Screen Not Detected (NotDetected); Cocaine Metabolite Screen Not Detected (NotDetected); Medtox Control Line Valid? VALID (VALID); Methadone Not Detected (NotDetected); Methamphetamine Not Detected (NotDetected); Opiate Screen Not Detected (NotDetected); Oxycodone Screen Not Detected (NotDetected); Phencyclidine (PCP) Not Detected (NotDetected); THC/Cannabinoid Screen Not Detected (NotDetected); Tricyclic Screen Not Detected (NotDetected)
[2018-02-26] MEDS ORDERED: cloNIDine 0.2 MG TAB ONE (18:47)
== END 2018-02-26 20:09 | disposition short-term general hospital (02) ==
LOC: NAV ERS 16:20
DX: I11.0 Hypertensive heart disease with heart failure (principal); I50.9 Heart failure, unspecified; R79.89 Other specified abnormal findings of blood chemistry; R09.02 Hypoxemia; I25.10 Atherosclerotic heart disease of native coronary artery without angina pectoris; E78.5 Hyperlipidemia, unspecified; F17.220 Nicotine dependence, chewing tobacco, uncomplicated; Z79.899 Other long term (current) drug therapy; Z79.891 Long term (current) use of opiate analgesic; Z86.718 Personal history of other venous thrombosis and embolism
CPT/HCPCS: 36415; 71046; 80053; 80306; 81003; 81015; 82553; 83880; 84484; 85025; 85379; 93005; 96374; J1940